=== PATIENT | male | born 1985 | race Caucasian/White ===

== ENCOUNTER 2017-05-18 21:22 | Inpatient (IN) | payer OTHER ==
--- NOTE | 2017-05-18 21:52 | CPEKG ---
Heart Rate: 52 RR Interval: 1154 P-R Interval: 180 QRSD Interval: 84 QT Interval: 392 QTC Interval: 365 P [place]: 13 QRS [place]: -18 T Wave [place]: 33 EKG Severity - BORDERLINE ECG - EKG Impression: SINUS RHYTHM Electronically Signed By: Jacques Pfeiffer 18-May-2017 22:38:12
--- NOTE | 2017-05-18 22:19 | EDPHY ---
H & P Stated Complaint: Palpations when playing basketball Time Seen by Provider: 05/18/17 22:19 HPI/ROS: CHIEF COMPLAINT: Palpitations, chest heaviness HISTORY OF PRESENT ILLNESS: The patient presents to the ED for evaluation of palpitations and chest heaviness that began today while he was playing basketball. The patient went home and rested however his symptoms persisted. He complained of fairly severe ongoing dyspnea. The patient denies prior history of the symptoms. He has no risk factors for coronary artery disease. He denies asymmetric calf pain or swelling. There is no family history of cardiac disease. The patient denies any drug alcohol or cigarette use. The patient currently is complaining of 4/10 pain. REVIEW OF SYSTEMS: A comprehensive 10 point review of systems is otherwise negative aside from elements mentioned in the history of present illness. Source: Patient - Personal History Current Tetanus/Diphtheria Vaccine: Yes Current Tetanus Diphtheria and Acellular Pertussis (TDAP): Yes - Medical/Surgical History Hx Asthma: No Hx Chronic Respiratory Disease: No Hx Diabetes: No Hx Cardiac Disease: No Hx Renal Disease: No Hx Cirrhosis: No Hx Alcoholism: No Hx HIV/AIDS: No Hx Splenectomy or Spleen Trauma: No Other PMH: denies - Social History Smoking Status: Never smoked - Physical Exam Exam: General Appearance: Alert, no distress Eyes: Pupils equal and round no pallor or injection ENT, Mouth: Mucous membranes moist Respiratory: There are no retractions, lungs are clear to auscultation Cardiovascular: Regular rate and rhythm Gastrointestinal: Abdomen is soft and nontender, no masses, bowel sounds normal Neurological: A&O, normal motor function, normal sensory exam, normal cranial nerves Skin: Warm and dry, no rashes Musculoskeletal: Neck is supple nontender Extremities: symmetrical, full range of motion Constitutional: Initial Vital Signs Temperature (C) 37.1 C 05/18/17 21:40 Heart Rate 70 05/18/17 21:40 Respiratory Rate 16 05/18/17 21:40 Blood Pressure 123/96 H 05/18/17 21:40 O2 Sat (%) 100 05/18/17 21:40 O2 Delivery Mode Nasal Cannula O2 (L/minute) 2 Allergies/Adverse Reactions: No Known Allergies Allergy (Unverified 05/18/17 21:43) Home Medications: Medication Instructions Recorded Herbals/Supplements -Info Only 1 ea PO DAILY 05/19/17 Ibuprofen [Motrin (*)] 200 mg PO DAILY PRN 05/19/17 Multivitamins [Multivitamin (*)] 1 each PO DAILY 05/19/17 [place]-3 Fatty Acids [Fish Oil 1000 1,000 mg PO DAILY 05/19/17 mg (*)] Tetrahydrozoline 0.05% [Visine (*)] 1 drop EACHEYE DAILY PRN 05/19/17 Medical Decision Making - Diagnostics EKG Interpretation: EKG: Complete interpretation has been separately recorded in the [facility] archive. Summary impression: Sinus rhythm, mild ST segment elevation noted in the precordial leads however there is a upsloping morphology to the ST segment. EKG #2: Complete interpretation has been separately recorded in the [facility] archive. Summary impression: Similar to 1st EKG without dynamic changes Imaging Results: Imaging Impressions Chest X-Ray 05/18/17 22:37 Impression: Central bronchitis.. Chest/Thorax CTA 05/18/17 23:38 Impression: 1. Negative CT examination of the chest for acute pulmonary thromboembolic disease. 2. Normal CT appearance of the thoracic aorta. 3. Lpdl-cm-ldvbmjmb mediastinal lymphadenopathy. Results called to Dr. Ernie Guzmán at the time of the interpretation. ED Course/Re-evaluation: The patient presents to the ED with exertional chest pain that began 7 o'clock this evening. Patient presents to the ED with some nonspecific changes on his EKG. He had no risk factors for cardiac disease. The patient had an IV established. He received IV morphine for initial control of his pain. The patient's initial troponin came back elevated at 0.1. His EKG was repeated and continues to demonstrate some nonspecific changes which are difficult to call a clear STEMI. I consulted with Dr. Marcos Krueger from Cardiology who evaluated the patient emergently in the emergency department. The patient was also taken for a stat CT angiogram of the chest which demonstrated no evidence of dissection. The patient did receive a total of 6 mg of morphine and 3 doses of nitroglycerin. He continues to have 3/10 pain. 12:00 a.m.: Patient's 2nd troponin is elevated at 0.6. Dr. Krueger will take the patient to the cardiac catheterization lab for further evaluation. Differential Diagnosis: Differential diagnosis considered includes acute coronary syndrome, pericarditis , myocarditis, aortic dissection, pulmonary embolism Critical Care Time: Critical care time exclusive of procedures and exclusive of the PA's time was 65 minutes, performed by myself, Jacques Pfeiffer MD. The patient presents to the ED with acute chest pain, EKG changes and abnormal cardiac enzymes. The patient required emergent consultation by Cardiology and will be taken to the cardiac catheterization lab for further evaluation of his symptoms, abnormal EKG and troponin abnormality. - Data Points Laboratory Results: Laboratory Results 05/18/17 22:08 05/18/17 22:08 05/18/17 05/18/17 05/18/17 23:30 23:30 22:08 D-Dimer 0.28 ug/mLFEU ug/mLFEU (0.00-0.50) Sodium Potassium Chloride Carbon Dioxide Anion Gap BUN Creatinine Estimated GFR Glucose Calcium Creatine Kinase 194 IU/L IU/L (0-224) CK-MB (CK-2) Fraction 7.35 ng/mL H ng/mL (0.00-3.19) CK-MB (CK-2) % 3.8 % % (0.0-4.0) Creatine Kinase Interp NEGATIVE (NEGATIVE) Troponin I 0.645 ng/mL H ng/mL (0.000-0.034) NT-Pro-B Natriuret Pep 162 pg/mL H pg/mL (0-125) 05/18/17 22:08 D-Dimer Sodium 140 mEq/L mEq/L (135-145) Potassium 3.7 mEq/L mEq/L (3.5-5.2) Chloride 105 mEq/L mEq/L (97-110) Carbon Dioxide 19 mEq/l L mEq/l (22-31) Anion Gap 16 mEq/L mEq/L (8-16) BUN 16 mg/dL mg/dL (7-23) Creatinine 1.4 mg/dL H mg/dL (0.7-1.3) Estimated GFR 59 Glucose 109 mg/dL H mg/dL (70-100) Calcium 10.4 mg/dL mg/dL (8.5-10.4) Creatine Kinase CK-MB (CK-2) Fraction CK-MB (CK-2) % Creatine Kinase Interp Troponin I 0.130 ng/mL H ng/mL (0.000-0.034) NT-Pro-B Natriuret Pep Medications Given: Aspirin Buffered (Aspirin Ec) 81 mg PO DAILY VANESSA Stop: 11/15/17 08:59 Last Admin: 05/19/17 08:29 Dose: 81 mg Atorvastatin Calcium (Lipitor) 40 mg PO DAILY [facility] Stop: 11/15/17 08:59 Last Admin: 05/19/17 08:29 Dose: 40 mg Carvedilol (Coreg) 3.125 mg PO BIDMEAL [facility] Stop: 11/15/17 04:14 Last Admin: 05/19/17 09:17 Dose: 3.125 mg Clopidogrel Bisulfate (Plavix) 75 mg PO DAILY [facility] Stop: 11/15/17 08:59 Last Admin: 05/19/17 08:29 Dose: 75 mg Discontinued Medications Aspirin (Aspirin) 324 mg PO EDNOW ONE Stop: 05/18/17 22:55 Last Admin: 05/18/17 23:02 Dose: 324 mg Morphine Sulfate (Morphine) 4 mg IVP EDNOW ONE Stop: 05/18/17 22:56 Last Admin: 05/18/17 23:05 Dose: 4 mg Morphine Sulfate (Morphine) 4 mg IVP EDNOW ONE Stop: 05/18/17 23:38 Last Admin: 05/18/17 23:39 Dose: 4 mg Nitroglycerin (Nitrostat) 0.4 mg SL Q5M PRN PRN Reason: Chest Pain Last Admin: 05/18/17 23:21 Dose: 0.4 mg Departure - Departure Disposition: [facility] Acute Clinical Impression: Chest pain, Acute coronary syndrome Condition: Fair
[2017-05-18 22:25] LABS: PLATELET COUNT 255 10^3/uL (150-400)
[2017-05-18] MEDS ORDERED: ASPIRIN 81 MG CHEWABLE TAB PO ONE (22:54)
[2017-05-18] MEDS: NITROGLYCERIN 0.4 MG BTL SL PRN ×3 (23:11→23:21)
[2017-05-18] MEDS ORDERED: IOPAMIDOL (ISOVUE 370) 100 ML BTL IV ONE (23:40)
[2017-05-18] MEDS ORDERED: fentaNYL 100 MCG/2 ML INJ ONE (23:52)
[2017-05-18] MEDS ORDERED: MIDAZOLAM 2 MG/2 ML VIAL ONE ×2 (23:52)
[2017-05-18] MEDS ORDERED: LIDOCAINE 1% 300 MG/30 ML SDV ONE (23:52)
[2017-05-18] MEDS ORDERED: IOPAMIDOL (ISOVUE-370) 150 ML BTL IV ONE (23:53)
[2017-05-18] MEDS ORDERED: BIVALIRUDIN 250 MG/5 ML VIAL IV ONE (23:57)
[2017-05-18] MEDS ORDERED: HEPARIN 10,000 UNIT/10 ML MDV (1,000 UNIT/ML) ONE (23:58)
--- NOTE | 2017-05-19 00:13 | CPEKG ---
Heart Rate: 61 RR Interval: 984 P-R Interval: 180 QRSD Interval: 80 QT Interval: 396 QTC Interval: 399 P [place]: -13 QRS [place]: 13 T Wave [place]: 22 EKG Severity - ABNORMAL ECG - EKG Impression: SINUS RHYTHM EKG Impression: CONSIDER ANTEROSEPTAL INFARCT Electronically Signed By: Jacques Pfeiffer 19-May-2017 00:13:07
[2017-05-19] MEDS ORDERED: MIDAZOLAM 2 MG/2 ML VIAL ONE ×2 (00:35→02:29)
[2017-05-19] MEDS ORDERED: fentaNYL 100 MCG/2 ML INJ ONE ×2 (00:35→02:29)
[2017-05-19] MEDS ORDERED: IOPAMIDOL (ISOVUE-370) 150 ML BTL IV ONE ×2 (02:01→02:17)
[2017-05-19] MEDS ORDERED: HEPARIN 10,000 UNIT/10 ML MDV (1,000 UNIT/ML) ONE ×2 (02:18→17:29)
[2017-05-19] MEDS ORDERED: NITROGLYCERIN 0.4 MG BTL SL PRN (02:49)
[2017-05-19] MEDS ORDERED: OXYCODONE/APAP 5/325 TAB PO PRN (02:49)
[2017-05-19] MEDS ORDERED: ONDANSETRON 4 MG/2 ML VIAL IVP PRN (02:49)
[2017-05-19] MEDS ORDERED: HYDROCODONE/APAP 5/325 TAB PO PRN (02:49)
[2017-05-19] MEDS ORDERED: ATROPINE SULFATE 1 MG/10 ML SYR IVP PRN (02:49)
[2017-05-19] MEDS ORDERED: CLOPIDOGREL BISULFATE 75 MG TAB ONE (02:58)
[2017-05-19] MEDS ORDERED: NS 1,000 ML IV SCH (03:30)
[2017-05-19 03:48] LABS: CREATINE KINASE 194 IU/L (0-224)
--- NOTE | 2017-05-19 03:52 | GHP ---
[f rep st] HISTORY AND PHYSICAL DATE OF ADMISSION: 05/19/2017 INDICATION FOR ADMISSION: Acute onset of chest pain with ST-segment elevation in the right precordia l leads and elevated troponin on admission. HISTORY OF PRESENT ILLNESS: The patient is a pleasant 31-year-old gentleman with no past medical his tory, who was playing basketball this evening at approximately 7:45 when he had an acute onset of sub sternal chest pain with bilateral paresthesias down both arms. He was able to sit down, felt slightl y better, but when he stood up, he had acute onset of chest discomfort again, prompting him to seek m edical attention at [facility]. He was brought to the hospital by his girlfriend. U eliseo his arrival, his initial ECG demonstrated Q-waves in V1 through V3 and between a half a millimete r and [address]-segment elevation in leads V2 and V3 with left axis deviation. Initial troponin 0.1 30. Repeat troponin an hour and 30 minutes later of 0.645. He was initially treated with nitroglyce rin, which alleviated his chest discomfort from a 7/10 down to 2/10. He did undergo CTA of the thora cic aorta with no evidence of aortic dissection. CT of the chest demonstrated no evidence of acute p ulmonary embolism and normal appearing CT of the thoracic aorta. There was mild to moderate mediasti nal lymphadenopathy. Initial chest x-ray was also unremarkable. Repeat ECG at 2255 demonstrated sinus rhythm at 61 beats per minute with persistent millimeter ST-segment elevation in V2, however, V3 and V4 had essentially normalized at this point. There was no evidence of T-wave inversions. The patient continued to have ongoing chest discomfort at the time of my examination, he was clearly uncomfortable. PAST MEDICAL HISTORY: None. MEDICATIONS: None. ALLERGIES: To medications none. SOCIAL HISTORY: He presents with his girlfriend. 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 He rarely drinks alcohol. No illicit drug use. No marijuana. No cocaine. No heroin. FAMILY HISTORY: No family history of coronary artery disease. PHYSICAL EXAMINATION: VITAL SIGNS: Blood pressure 129/89, heart rate of 83 in sinus rhythm, respira tory rate of 20, oxygen saturation 100% on 2 L nasal cannula. GENERAL: He is awake, alert, oriented , appropriate. No apparent distress. No evidence of JVP or carotid bruits. LUNGS: Clear to auscul tation bilaterally. CARDIAC: S1, S2. No murmurs, rubs, or gallops. ABDOMEN: Soft, nontender, non distended. There is no evidence of cyanosis, clubbing or edema. DATA: White blood cell count 16.7, hemoglobin 17, hematocrit 47, platelet count 255. D-dimer was ne gative at 0.28. Sodium 140, potassium 3.7, creatinine of 1.4, glucose of 109. Troponin initially of 0.16, now repeat is elevated at 0.645. IMPRESSION: 1. Ongoing substernal chest pain. 2. Findings suggestive of ST-segment elevation myocardial infarction right precordial leads. 3. Negative CTA for pulmonary embolism or thoracic aortic dissection. I have reviewed the risks and benefits of diagnostic left heart catheterization in this patient in th e setting of ongoing chest pain, elevated enzymes, and abnormal ECG. He is agreeable to pursue. PLAN: 1. Diagnostic left heart catheterization. 2. Further studies to follow. /[id number]/MODL
[2017-05-19] MEDS: CARVEDILOL 3.125 MG TAB PO SCH ×2 (04:14→09:17)
[2017-05-19 04:51] LABS: CREATINE KINASE 499 IU/L (0-224)
--- NOTE | 2017-05-19 05:07 | CPIP ---
[f rep st] INVASIVE CARDIAC PROCEDURE PROCEDURE: Left heart catheterization, coronary angiography, attempted percutaneous coronary interve ntion. INDICATIONS: A 31-year-old male admitted with acute chest pain syndrome, taken to the cardiac cath l ab by my partner, Dr. Marcos Krueger. Diagnostic angiograms showed a significant anterior lateral akinet ic segment. Diagnostic angiograms did not reveal a stump occlusion easily visible. After reviewing diagnostic angiograms, it was elected to re-engage with an interventional JL4 guiding catheter with a 0.014 Luge wire. DESCRIPTION OF PROCEDURE: Multiple shots were obtained in multiple angles showing collateralization to what appears to be the apical portion of either a diagonal or the apical portion of the LAD. Prob es with the wire in the proximal segment did not reveal an occlusion amenable to PCI. I reviewed the diagnostic CT scans which suggested a vessel above what we could visualize. Again, multiple attempt s at probing were made, but despite multiple what felt like possible stump occlusions. The wire posi tion was not confirmed. The patient was administered heparin for the intervention. Therapeutic ACT was confirmed during the procedure. His pain was a 1/10 with stable hemodynamics. After multiple at tempts, it was elected to stop at this time as the patient has excellent collaterals and stable hemod ynamics with continued aggressive medical therapy. Will review films in the psychiatric nurse with CT Beltran rgery to see if there is a potential distal LAD target. Will plan for echocardiogram to look at LV r ecovery in the morning. Will follow cardiac enzymes per Dr. Krueger. At the time of this dictation, th e patient is hemodynamically stable with minimal discomfort, stable electrical status and will be cat en to the ICU for continued care. FINAL DIAGNOSIS: Anterolateral myocardial infarction with collaterals to what appears to be a sunshine al. No obvious lesion identified. /[id number]/MODL
[2017-05-19] MEDS ORDERED: HEPARIN/DEXTROSE 25,000 UNIT/500 ML BAG ONE (08:28)
[2017-05-19] MEDS: CLOPIDOGREL BISULFATE 75 MG TAB PO SCH (08:29)
[2017-05-19] MEDS: ASPIRIN EC 81 MG TAB PO SCH (08:29)
[2017-05-19] MEDS: ATORVASTATIN CALCIUM 40 MG TAB PO SCH (08:29)
--- NOTE | 2017-05-19 08:36 | CPEKG ---
Heart Rate: 57 RR Interval: 1053 P-R Interval: 164 QRSD Interval: 86 QT Interval: 428 QTC Interval: 417 P [place]: -7 QRS [place]: 17 T Wave [place]: 56 EKG Severity - ABNORMAL ECG - EKG Impression: SINUS RHYTHM EKG Impression: ABERRANT COMPLEX EKG Impression: ANTERIOR INFARCT, AGE INDETERMINATE Electronically Signed By: Uriel Doshi 19-May-2017 08:41:44
[2017-05-19] MEDS ORDERED: HEPARIN 10,000 UNIT/10 ML MDV (1,000 UNIT/ML) IVP ONE (08:38)
[2017-05-19] MEDS ORDERED: HEPARIN 10,000 UNIT/10 ML MDV (1,000 UNIT/ML) IVP PRN (08:38)
[2017-05-19] MEDS ORDERED: HEPARIN/DEXTROSE 500 ML IV SCH (08:45)
[2017-05-19] MEDS ORDERED: LIDOCAINE/DEXTROSE 500 ML IV SCH (09:00)
--- NOTE | 2017-05-19 09:26 | ASMTCMCOM ---
CM Note CM Note Notes: 31 yr old male admitted for CP, no other medical isssues. Had a heart cath. Support from girlfriend. CM doesn't anticipate patient will have any discharge needs. Date Signed: 05/19/2017 09:26 AM Electronically Signed By:Maribel Gonzalez LCSW
--- NOTE | 2017-05-19 09:33 | CPIP ---
[f rep st] INVASIVE CARDIAC PROCEDURE DATE OF PROCEDURE: 05/19/2017 PROCEDURE PERFORMED: Diagnostic left heart catheterization. INDICATION FOR LEFT HEART CATHETERIZATION: Acute myocardial infarction with ongoing chest pain and e levated troponin. PROCEDURE PERFORMED: 1. Left heart catheterization. 2. Left coronary angiography. 3. Right coronary angiography. 4. Left ventriculogram. 5. Right common femoral artery angiography. DESCRIPTION OF PROCEDURE: After informed consent was obtained, the patient was brought to the [facility] catheterization lab where he was prepped and draped in a sterile fashion. Using 1% lidocaine the r ight groin was anesthetized. Using the micropuncture modified Seldinger technique, a 6-Zimbabwean cathet er was placed into the right common femoral artery without complications. A JL4 catheter was used to take images of the left coronary anatomy in multiple projections. The JL4 catheter was exchanged ov er a guidewire for a JR4 catheter. JR4 catheter was used to take images of the right coronary anatom y. A JR4 catheter was exchanged over a guidewire for an angled pigtail catheter. Angled pigtail cat heter was used to cross the aortic valve. Left ventriculogram was performed. LVEDP was assessed, an d aortic valve gradient was assessed. Angled pigtail catheter was removed over a guidewire without c omplications. Right common femoral artery angiography was obtained demonstrating appropriate placeme nt of the 6-[place]an catheter below the inguinal ligament and above the bifurcation of the common femor al artery. FINDINGS: 1. Left main normal size and caliber bifurcates into left anterior descending and left circumflex co ronary artery. There is some distal tapering of approximately 10% to 20% of the distal left main. 2. Left anterior descending artery gives rise to several small septal perforators. There is no evid ence of coronary disease within the left anterior descending. There is a moderate size first diagona l branch that is free of coronary artery disease. There is evidence of xxkoz-ew-nmbt retrograde fill ing via collaterals to a branch vessel off the LAD. This appears to be a diagonal branch. 3. Circumflex artery is a small nondominant vessel. There is a moderate size first diagonal branch. There is no evidence of coronary disease within the circumflex artery. 4. The right coronary artery is a large caliber dominant vessel with a PDA and PLV branch. There is no evidence of coronary disease within the right coronary artery. 5. Hemodynamics: LVEF 40% with anterior wall hypokinesis. LVEDP is elevated approximately 32 mmHg. Aortic valve gradient none. 6. Right common femoral artery angiography demonstrates appropriate placement of 6-[place]imbabwean sheath. CONCLUSIONS: 1. Occluded diagonal branch with collateral filling via the right coronary artery. 2. Anterior wall hypokinesis with LVEF of 40%. 3. 10% to 20% distal left main stenosis. The remainder of the coronary anatomy is unremarkable. ADDENDUM: I reviewed the images with my interventional partner, Dr. Diogo Nova. Attempts were made with Dr. Nova to cannulate the origin of the occluded diagonal branch. Attempts were unsucc essful. Please see his note for full details. PLAN: The patient will be transported to ICU to be started on medical therapy. /[id number]/MODL
[2017-05-19 09:40] LABS: PLATELET COUNT 195 10^3/uL (150-400)
[2017-05-19 09:48] LABS: CREATINE KINASE 1292 IU/L (0-224)
[2017-05-19] MEDS ORDERED: ENALAPRIL MALEATE 2.5 MG TAB PO PRN (11:09)
[2017-05-19] MEDS ORDERED: CARVEDILOL 3.125 MG TAB PO ONE (11:15)
--- NOTE | 2017-05-19 11:32 | ECHO ---
[email or web address] [address] [address] Main: [phone] Fax: Transthoracic Echocardiogram Name: LEEANNA GLASS MR#: [id number] Study Date: 05/19/2017 Study Time: 07:41 AM Date of : 1985 Age: 31 year(s) Height: 188 cm (74 in.) Weight: 81.65 kg (180 lb.) BSA: 2.08 m2 Gender: Male Examination: Limited Echo Indication: Post OK Image Quality: Contrast: Requested by: Prince Krueger BP: 132 mmHg/87 mmHg Heart Rate: Rhythm: Normal sinus rhythm with ectopy Indication: Post OK Procedure Staff Optical Sales Associate: Luc Angeles RDCS Reading Physician: Diogo Nova MD Requesting Provider: Conclusions: No pericardial effusion. Anterior apical akinesis consistent with myocardial infarction. Ejection fraction 34%. No significant valvular abnormalities by Doppler or 2D study. Measurements: Chambers Valvular Assessment AV/MV Valvular Assessment TV/PV Normal Normal Normal Name Value Range Name Value Range Name Value Range Ao Xochitl (MM): 3.3 cm (2.2 cm-3.7 AV Vmax: 1.18 m/s (1 m/s-1.7 TR Vmax: 2.32 mm/s ( - ) cm) m/s) TR PGmax: 22 mmHg ( - ) IVSd (2D): 1.0 cm (0.6 cm-1.1 AV maxP mmHg ( - ) syst. PAP: 27 mmHg ( - ) cm) LVOT Vmax: 0.67 m/s (0.7 m/s-1.1 PV Vmax: 0.79 m/s (0.6 m/s-0.9 LVDd (2D): 5.0 cm (4.2 cm-5.9 m/s) m/s) cm) MV E Vmax: 0.73 m/s ( - ) PV PGmax: 2 mmHg ( - ) LVDs (2D): 3.8 cm (2.1 cm-4 MV A Vmax: 0.35 m/s ( - ) cm) MV E/A: 2.09 ( - ) LVPWd (2D): 1.0 cm (0.6 cm-1 cm) LVEF (BP): 34 % (>=55 %) Continued Measurements: Chambers Valvular Assessment AV/MV Valvular Assessment TV/PV Name Value Name Value Name Value LADs Lon.6 cm MV E' Septal: 0.10 m/s CVP (est.): 5 mmHg LA Area: 19.8 cm2 MV E/E' Septal: 7.00 LA Volume: 64 ml MV E/E' Lateral: 6.30 LA Volume Index: 30.8 ml/m2 Patient: LEEANNA GLASS Study Date: 05/19/2017 Page 1 of 2 07:41 AM Findings: Left Ventricle: Normal size left ventricle. Moderately reduced systolic LV function. EF is 34 %. There is mid anteroseptal to apical hypokinesis. There is mid inferoseptal to apical septal hypokinesis. The EF is estimated at 35% Ectopy is noted during the exam.. Right Ventricle: Normal size right ventricle. Normal RV function. Left Atrium: The left atrium is normal in size. Right Atrium: The right atrium is normal in size. Mitral Valve: The mitral valve is normal in appearance and function. Aortic Valve: The aortic valve is tri-leaflet and functions normally. Tricuspid Valve: The tricuspid valve is normal in appearance and function. Pulmonic Valve: The pulmonic valve is normal in appearance and function. Aorta: The aorta is normal. Pericardium: No pericardial effusion. (No Signature Object) Patient: LEEANNA GLASS Study Date: 05/19/2017 Page 2 of 2 07:41 AM [id number]
--- NOTE | 2017-05-19 12:24 | GCON ---
[f rep st] CONSULTATION CARDIOVASCULAR CONSULTATION. HISTORY OF PRESENT ILLNESS: The patient is admitted to the hospital in anterior myocardial infarction. I have just talked with him this morning. He is not having chest pain. He is not short of breath. He feels quite well. He is a gentleman who came in with the onset of chest pain last night and came to the hospital with an acute myocardial infarction. Coronary angiography was performed. He had no past medical history and he was playing basketball. He came to [facility] and his pain slowly improved. His pain went from 8/ 10 to 2/10 with nitroglycerin, and the patient was brought to the [facility]. MEDICATIONS: He takes no medications. PAST MEDICAL HISTORY: He has no history of premature coronary disease in his family, hypertension, hyperlipidemia, diabetes mellitus, prior known coronary disease, cocaine use, atrial arrhythmias, hyperlipidemia, hyperuricemia, obesity , smoking. REVIEW OF SYSTEMS: 10-point review of systems negative, except as noted above. SOCIAL HISTORY: He is an active young man. His girlfriend is with him when I am meeting him. 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 Does not use any drugs at all. He occasionally will drink alcohol. FAMILY HISTORY: Negative for premature coronary artery disease. PHYSICAL EXAMINATION: VITAL SIGNS: Blood pressure is 125/75, heart rate is 77 , respiratory rate is 12. GENERAL: When I first him he was sitting comfortably in the hospital bed, and now, he is he is sleeping in the hospital bed. PULMONARY: Reveals rhonchi. No rales, wheezing, or dullness. : S1, S2. Very soft systolic murmur left sternal border. No diastolic murmur. No S3 , S4. No rubs. ABDOMEN: Unremarkable. EXTREMITIES: Without edema. NEUROLOGIC: He is alert and oriented when I talked to him and having no pain. LABORATORY/IMAGING: Chest x-ray was negative. CT scan of the thorax for pulmonary embolic disease or aortic dissection or other aortic pathology was all negative. His EKG shows an anterior infarction. ASSESSMENT/PLAN: 1. Acute myocardial infarction. 2. Ischemic cardiomyopathy. His ejection fraction is 35% with significant wall motion abnormality. It was felt at angiography that the patient has an occluded diagonal branch of the left anterior descending. His troponins are elevated. He is going to be treated very aggressively medically for an acute myocardial infarction. His films have been reviewed by the interventional service and myself, and everyone agrees, there is nothing to do to intervene on the patient or any role for surgery in his care. I have talked to patient and answered his questions. Discussed this case with the ICU team. For now, we have him on clopidogrel, aspirin, statins, beta blockers, and we will start CRISTINA inhibitors tonight when he goes to bed if his blood pressure can tolerate it. We are increasing his beta-tirso dose now to Coreg 6.25 twice a day. I am hopeful that he can improve remarkably and perhaps even get all better. /[id number]/MODL MTDD
--- NOTE | 2017-05-19 14:23 | GCON ---
[f rep st] CONSULTATION PULMONARY/CRITICAL CARE CONSULTATION DATE OF CONSULTATION: 05/19/2017 REFERRING PHYSICIAN: Esteban Hunt REASON FOR REFERRAL: Evaluation and management of chest pain and hypocalcemia. HISTORY: The patient is a 31-year-old male who was in his usual state of good health. He was playing basketball yesterday evening when he had acute onset of substernal chest pain and paresthesias down his arms. Because this persisted, he was brought to the emergency department where he was found to reddy ve Q-waves in V1 through V3 and ST-segment elevation in leads V2 and V3. He was treated with nitroglycerin, which helped but did not relieve his pain. He had a CT scan of the chest that excluded aortic dissection. He was then taken to the catheterization lab where he was fou nd to have reduced ejection fraction at 40% and an elevated LVEDP of 32 mmHg. He had an occluded diag onal branch with collateral filling via the right coronary artery. Interventions were attempted but w ere unsuccessful. He has returned to the intensive care unit. He has had frequent ectopy with junctio nal rhythm, accelerated junctional, PVCs, brief runs of SVT, and brief runs of an NSVT. The patient h as been hemodynamic throughout all these and was asymptomatic with them. He currently reports that he has some mild chest discomfort, rated 0-1 out of 10. He denies shortness of breath or diaphoresis. PAST MEDICAL HISTORY: None. MEDICATIONS: None. SOCIAL HISTORY: The patient lives with his girlfriend. He rarely drinks alcohol and does not smoke o r use cocaine. FAMILY HISTORY: Unremarkable. REVIEW OF SYSTEMS: A 10-point review of systems adds nothing to the History of Present Illness. PHYSICAL EXAMINATION: GENERAL: The patient is sleepy, but awakens to voice and is fully oriented. GABRIELLE SIGNS: His blood pressure is 119/75 with a heart rate of 82. He is afebrile. Oxygen saturations a re 98% on 2 L. HEENT: Normocephalic and atraumatic. No icterus. NECK: No JVD. Trachea is midline. RAINA ST: Clear to auscultation. CARDIAC: Regular rate and rhythm without murmur. ABDOMEN: Soft, nontender. Bowel sounds are present. EXTREMITIES: No clubbing or cyanosis. He has no edema. NEURO: The patient is arousable and alert. He has no gross motor or sensory weakness. LABORATORY: Chemistry group is remarkable for a calcium of 8.3, down from 10.4. Troponin is 12.2, up from 0.13 initially. BNP is 162. A CT scan of the chest shows no pulmonary abnormalities. Images reviewed by me. ASSESSMENT: 1. ST-segment elevation acute myocardial infarction. The patient apparently has an occluded diagonal branch. He has significant regional wall motion abnormalities, but no clinical signs of significant congestive heart failure. His chest pain is fairly well controlled. He has had some arrhythmias, but these are improved with Coreg. He is also on lisinopril as well as aspirin. No further coronary inter vention is warranted or likely to be successful per Cardiology. 2. Chest pain. This is now down to 0-1 out of 10 with Coreg and afterload reduction. 3. Hypocalcemia. This is mild. The patient's initial calcium level is normal. RECOMMENDATIONS: 1. Continue beta blockers, lisinopril, and aspirin, as well as oxygen. Continue to monitor in the U. 2. Repeat calcium tomorrow. /[id number]/MODL
--- NOTE | 2017-05-19 15:56 | PDINTPN ---
Program Mgr Progress Note Assessment/Plan: Assessment: S/P STEMI: Ventricular and supraventricular ectopy this AM, now improved, started Coreg. Possible DAIANA: Witnessed apneas by nurse this AM. Could be due to residual effects of sedation from heart cath. Plan: Continue current medications. Diet as tolerated. Will check urine tox screen. Consider outpatient evaluation for DAIANA after discharge. Numerous questions by patient and family answered by Dr. Nova and me. 05/19/17 15:54 Subjective: Patient denies pain. No dyspnea. Objective: Vital Signs Temp Pulse Resp BP Pulse Ox 36.9 C 82 19 119/75 98 05/19/17 12:00 05/19/17 12:00 05/19/17 12:00 05/19/17 12:00 05/19/17 12:00 Laboratory Results 05/19/17 09:29 05/19/17 03:46 05/18/17 05/19/17 05/20/17 05:59 05:59 05:59 Intake Total 1250 Output Total 900 Balance 350 Laboratory Tests 05/19/17 09:29 Creatine Kinase 1292 H Troponin I 12.200 H Physical Exam - Physical Exam General Appearance: alert, no apparent distress EENT: normal ENT inspection Neck: normal inspection Respiratory: lungs clear, normal breath sounds Cardiac/Chest: normal peripheral pulses, regular rate, rhythm Abdomen: normal bowel sounds, non-tender Skin: warm/dry Extremities: normal inspection Neuro/Psych: alert, normal mood/affect, oriented x 3 ICD10 Worksheet Patient Problems: Problems Problem Status Onset Acute coronary syndrome Acute Chest pain Acute
[2017-05-19] MEDS: CARVEDILOL 6.25 MG TAB PO SCH (18:31)
[2017-05-19 21:21] LABS: CREATINE KINASE 2455 IU/L (0-224)
[2017-05-20 05:49] LABS: CREATINE KINASE 1529 IU/L (0-224)
--- NOTE | 2017-05-20 08:44 | CPEKG ---
Heart Rate: 60 RR Interval: 1000 P-R Interval: 176 QRSD Interval: 84 QT Interval: 472 QTC Interval: 472 P White: -2 QRS White: 74 T Wave White: 98 EKG Severity - ABNORMAL ECG - EKG Impression: SINUS ARRHYTHMIA, RATE 47-67 EKG Impression: ANTERIOR INFARCT, AGE INDETERMINATE EKG Impression: BORDERLINE PROLONGED QT INTERVAL Electronically Signed By: Uriel Doshi 20-May-2017 09:08:36
[2017-05-20] MEDS: CARVEDILOL 6.25 MG TAB PO SCH ×2 (09:03→18:18)
[2017-05-20] MEDS: ATORVASTATIN CALCIUM 40 MG TAB PO SCH (09:04)
[2017-05-20] MEDS: ASPIRIN EC 81 MG TAB PO SCH (09:04)
[2017-05-20] MEDS: CLOPIDOGREL BISULFATE 75 MG TAB PO SCH (09:04)
--- NOTE | 2017-05-20 15:58 | ASMTCMCOM ---
CM Note CM Note Notes: Met with patient's mom and girlfriend to discuss insurance issues. Apparently, patient had recently enrolled with [employer] (was covered as of 03/23/17) but then cancelled his enrollment when he started to receive requests for payments in the mail. Family brought in multiple letters from [employer], and I had to encourage them to contact [employer] directly to get the issue resolved. I was able to reassure them, however, that this hospitalization would be covered, since patient's coverage was good through today, 05/20. I also informed them that coverage would continue until discharge but that after that, patient would need to seek coverage. I had someone from [employer] come to screen him for Medicaid. There was also a lot of back and forth today about whether patient would need repatriation to [facility]. Dr Nova said he was waiting on a call from a [employer] MD to discuss this. I spoke with Yury Pat CM ([phone]) who requested that her doctor call Dr Nova. Apparently, if patient does not need a CABG (which, according to Dr Palm, he does not), there is no need to transfer. I will leave this to the cardiology team. Date Signed: 05/20/2017 03:58 PM Electronically Signed By:Astrid Flores RN
--- NOTE | 2017-05-20 16:39 | PDINTPN ---
Industrial Manufacturing Technician Progress Note Assessment/Plan: Assessment: S/P STEMI: Clinically improved. No CP, significant ectopy. Urine tox screen negative except for THC. Possible DAIANA: Witnessed apneas by nurse this AM. Could be due to residual effects of sedation from heart cath. SALVADOR: Likely due to reduced EF and IV contrast. Normalized. Plan: Continue current medications, adjust per cardiology. Nuc Stress test and CT Heart tomorrow. Transfer to PCU. Consider outpatient evaluation for DAIANA after discharge. Questions by patient and family answered by Dr. Nova and me. 05/20/17 16:40 Subjective: Feels well, denies CP, dyspnea. Objective: Vital Signs Temp Pulse Resp BP Pulse Ox 36.8 C 72 16 108/63 100 05/20/17 08:00 05/20/17 14:00 05/20/17 14:00 05/20/17 14:00 05/20/17 14:00 Laboratory Results 05/20/17 03:55 05/20/17 03:55 05/19/17 05/20/17 05/21/17 05:59 05:59 05:59 Intake Total 1250 1872 500 Output Total 900 1150 1100 Balance 350 722 -600 Laboratory Tests 05/19/17 05/20/17 17:25 03:55 Troponin I 35.000 H U Marijuana (THC) Screen 76 Physical Exam - Physical Exam General Appearance: alert, no apparent distress EENT: normal ENT inspection Neck: normal inspection Respiratory: lungs clear, normal breath sounds Cardiac/Chest: regular rate, rhythm, No edema Abdomen: normal bowel sounds, non-tender Skin: normal color, warm/dry Extremities: non-tender ICD10 Worksheet Patient Problems: Problems Problem Status Onset Acute coronary syndrome Acute Chest pain Acute
--- NOTE | 2017-05-20 17:03 | SOAPPROG ---
MARIO Progress Note Assessment/Plan: Assessment: Non-Q-wave myocardial infarction. Ischemic cardiomyopathy. Impression: Day 2. Status post NE. Clinically stable without angina or heart failure. Plan for risk stratification tomorrow. Discussed by interventional Cardiology at [place] and here at [facility]. Ischemic burden to be determined. Will transfer to telemetry. Phase 1 cardiac rehabilitation. 05/20/17 17:02 Subjective: Feeling well. No further chest pain. No shortness of breath. Objective: Vital Signs Temp Pulse Resp BP Pulse Ox 36.8 C 72 16 108/63 100 05/20/17 08:00 05/20/17 14:00 05/20/17 14:00 05/20/17 14:00 05/20/17 14:00 Laboratory Results 05/20/17 03:55 05/20/17 03:55 05/19/17 05/20/17 05/21/17 05:59 05:59 05:59 Intake Total 1250 1872 500 Output Total 900 1150 1100 Balance 350 722 -600 EKG shows evolving anterior wall myocardial infarction with Q-waves. Physical Exam - Physical Exam General Appearance: no apparent distress EENT: normal ENT inspection Neck: non-tender, full range of motion Respiratory: chest non-tender, lungs clear, normal breath sounds Cardiac/Chest: normal peripheral pulses, regular rate, rhythm, No edema, No gallop, No JVD Peripheral Pulses: 1+: carotid (R), carotid (L) ICD10 Worksheet Patient Problems: Problems Problem Status Onset Chest pain Acute Acute coronary syndrome Acute
[2017-05-21] MEDS: ASPIRIN EC 81 MG TAB PO SCH (08:52)
[2017-05-21] MEDS: CLOPIDOGREL BISULFATE 75 MG TAB PO SCH (08:52)
[2017-05-21] MEDS: ATORVASTATIN CALCIUM 40 MG TAB PO SCH (08:52)
[2017-05-21] MEDS: CARVEDILOL 6.25 MG TAB PO SCH (08:52)
[2017-05-21] MEDS ORDERED: IOPAMIDOL (ISOVUE 370) 100 ML BTL IV ONE (09:00)
[2017-05-21] MEDS ORDERED: METOPROLOL TARTRATE 5 MG/5 ML INJ ONE (09:55)
[2017-05-21] MEDS ORDERED: REGADENOSON 0.4 MG/5 ML SYR IVP ONE (10:29)
[2017-05-21 11:50] VITALS: TEMP 98.5
--- NOTE | 2017-05-21 13:34 | PDDCSUM ---
Discharge Summary Discharge Summary: Admission date: 05/18/2017 Discharge date: 05/21/2017 Admission diagnosis: Anterior wall myocardial infarction Discharge diagnosis: Anterior wall myocardial infarction. Ischemic cardiomyopathy ejection fraction 35%. Discharge medications please see the attached discharge reconciliation sheet. Follow-up cardiology [facility] day discussed with Dr. Myrtle Sheikh within 1 week to 10 days. Procedures: Left heart catheterization attempted PCI of the LAD. CT scan of the chest rule out aortic dissection. Gated contrast CT of the coronary arteries revealing 2.5 cm chronic occlusion of the LAD flush with the left main with reconstitution of the a 3 mm vessel in the intraventricular groove on the surface of the heart. Lexiscan stress test revealing anteroseptal large defect with reversibility. Echocardiogram showing ejection fraction 35%. Preserved myocardial thickness in the region of the infarction. No significant valvular abnormalities. No pericardial effusion. Hospital course: Mr. Tang is a 31-year-old male admitted to the hospital with acute onset chest pain while playing basketball. His initial EKG showed a anterior Q-waves. He has standard workup for chest pain with a CT scan revealing no evidence of aortic dissection or pulmonary embolic disease. His troponin became slightly elevated he was taken the cardiac catheterization lab by my partner Dr. Marcos Krueger. Angiography at that time revealed a large anterior apical akinetic segment. Coronary anatomy was not well defined. I reviewed his diagnostic angiograms that night remotely and then in person with a suggestion of loss of the LAD with collaterals. Attempted PCI was made in regions that appear to be potentially the culprit. After several hours the patient became pain-free and we were unable to revascularize him percutaneously. He was taken to the intensive care unit in a pain-free status. He was observed with 1 day of ventricular ectopy which quieted down with beta- blockade. He was started on standard medical therapy including Cornell inhibition, beta-blockade, statin therapy, dual antiplatelet therapy. After 48 hours of heparin a Lexiscan was performed revealing a large anterior septal defect with reversibility. A CT angiogram was performed revealing a 2.5 cm chronic occlusion of the LAD flush with the left main. There was reconstitution of the vessel distally. The vessel measures 3 mm. He was hemodynamically stable. On the day of discharge blood pressure was 106/70. His heart rate was 62. Chest was clear. Cardiac exam showed a regular rate and rhythm with an S4. His abdomen is soft. Is puncture site was healing well without erythema or edema. At this point patient presents with a ischemic cardiomyopathy ejection fraction of 35% with an area of anterior septal reversibility in the setting of a recent myocardial infarction. Initial EKG suggest significant chronicity. CT angiogram does show a chronic occlusion with reconstitution of the distal vessel. On good medical therapy he is currently asymptomatic without angina or heart failure. Will need to consider revascularization strategies including bypass surgery with mammary to the LAD versus repeat attempted PCI of a chronic occlusion versus continued medical therapy alone. Discussed this options with the patient and family. He will be discharged home followed up at [facility] for ongoing evaluation and treatment. A PET scan may be helpful to determine true viability. This was discussed with the [facility] doctors. Patient will be followed up as outlined above. We are happy to see him here in [place] if needed.
[2017-05-21 14:23] VITALS: BP 109/61; PULSE 66; RESP 21; O2SAT 99
--- NOTE | 2017-05-21 14:44 | CPR ---
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 PROCEDURE IN DETAIL: After obtaining informed consent, ensuring patient's n.p.o. status of caffeine greater than 12 hours, patient was placed on electrocardiogram. Initial EKG showing sinus rhythm, no rmal axis, biphasic T-waves noted in V2 through V4. The patient denies any chest pain, shortness of breath, or symptoms suggesting of ischemia. Initial blood pressure of 102/68, saturation 96%. Injection: Patient was given Lexiscan slow IV push followed by nuclear isotope. Within 1 minute of injection, patient's heart rate did increase to 91 beats per minute, reporting some mild left anterio r chest pressure, and flushing sensation. By 3 minutes, patient reports symptoms somewhat subsided, he was given caffeinated beverage at this time. His electrocardiogram remained unchanged. His blood pressure was 98/62, saturation 97% on room air. Within 5 minutes, patient reported all symptoms subs ided, again no significant EKG changes. Final blood pressure was 100/64, saturation 98%. IMPRESSION: A 31-year-old male with recent myocardial infarction, undergoing MPI study for evaluatio n of further cardiac ischemia, reporting mild chest pressure and flushing sensation post injection wh ich resolved with time and caffeine beverage. Vital signs remained stable. Currently, he is asympto matic. He will finish poststress imaging in nuclear medicine. /[id number]/MODL
== END 2017-05-21 15:56 | disposition home or self-care (01) | DRG 282 ==
LOC: F2N 05-19 03:19 → F2W 05-21 06:11
PROVIDERS: ADMIT Internal Medicine Cardiovascular Disease; ATTEND Internal Medicine Cardiovascular Disease
PROC: B2151ZZ Fluoroscopy of Left Heart using Low Osmolar Contrast (ICD-10-PCS; principal; 2017-05-19)
PROC: 4A023N7 Measurement of Cardiac Sampling and Pressure, Left Heart, Percutaneous Approach (ICD-10-PCS; principal; 2017-05-19)
PROC: B2111ZZ Fluoroscopy of Multiple Coronary Arteries using Low Osmolar Contrast (ICD-10-PCS; principal; 2017-05-19)
PROC: B2111ZZ Fluoroscopy of Multiple Coronary Arteries using Low Osmolar Contrast (ICD-10-PCS; 2017-05-19)
PROC: 4A023N7 Measurement of Cardiac Sampling and Pressure, Left Heart, Percutaneous Approach (ICD-10-PCS; 2017-05-19)
DX: I21.09 ST elevation (STEMI) myocardial infarction involving other coronary artery of anterior wall (principal); I25.5 Ischemic cardiomyopathy; G47.33 Obstructive sleep apnea (adult) (pediatric)
CPT/HCPCS: 80307; 85520-90; 96374; A9500; C1760; C1769; C1887; G0480; J0461; J0583; J1200; J1644; J2001; J2250; J2270; J2405; J2785; J3010; Q9967

== ENCOUNTER 2017-06-08 08:12 | Inpatient (IN) | payer MEDICAID, OTHER ==
[~2017-06-08 08:12] MED LIST: ADENOSINE 6 MG/2 ML VIAL ONE; ALBUMIN 5% 250 ML BOTTLE IV ONE; AMINOCAPROIC ACID 5 GM/20 ML VIAL IV ONE; AMIODARONE HCL 150 MG/3 ML VIAL ONE; CALCIUM CHLORIDE 1 GM/10 ML INJ ONE; CITRATE DEXTROSE SOLN 500 ML BAG ONE; DOPamine/DEXTROSE/250 ML BAG IV ONE; EPINEPHrine 8 MG in NS 250 ML IV ONE; HEPARIN 10,000 UNIT/10 ML MDV (1,000 UNIT/ML) ONE; INSULIN REGULAR HUMAN 100 UNIT in NS 100 ML IV ONE; LIDOCAINE 2% 100 MG/5 ML SYR ONE; MAGNESIUM SULFATE 1 GM/2 ML VIAL ONE; MANNITOL 25% 12.5 GM/50 ML VIAL IVP ONE; MILRINONE/DEXTROSE/100 ML BAG IV ONE; NA BICARBONATE 50 MEQ/50 ML VIAL ONE; NOREPINEPHRINE BITARTRATE 16 MG in NS 250 ML IV ONE; PHENYLEPHRINE HCL 50 MG in NS 250 ML IV ONE; PROTAMINE SULFATE 50 MG/5 ML VIAL IVP ONE; SODIUM BICARBONATE 20 MEQ, LIDOCAINE 1% 10 ML in NORMOSOL-R 1,000 ML MISC ONE; VERAPAMIL 5 MG, NITROGLYCERIN 2.5 MG, HEPARIN 500 UNIT, SODIUM BICARBONATE 0.2 MEQ in L... MISC ONE; ceFAZolin 1 GM VIAL ONE; methylPREDNISolone SOD SUCC 1 GM/8 ML VIAL ONE; niCARdipine/NACL/200 ML BAG IV ONE
[2017-06-08] MEDS ORDERED: ceFAZolin 2 GM/SWFI 2 GM/20 ML SYR IVP ONE ×2 (08:50→09:00)
[2017-06-08] MEDS ORDERED: niCARdipine/NACL 200 ML IV SCH (08:50)
[2017-06-08] MEDS ORDERED: MUPIROCIN 2% 22 GM OINT NS ONE (08:50)
[2017-06-08] MEDS ORDERED: CITRATE DEXTROSE SOLN 500 ML BAG MISC ONE (08:50)
[2017-06-08] MEDS ORDERED: LR 1,000 ML IV ONE (08:51)
[2017-06-08] MEDS ORDERED: LIDOCAINE 1% 2 ML INJ ID PRN (08:51)
--- NOTE | 2017-06-08 08:54 | PDHPUP ---
History & Physical Update H&P update statement: This history and physical update is based on an assessment of the patient which was completed after admission or registration (within 24 hours), but prior to the surgery/procedure. H&P update: H&P reviewed & patient examined, no change in patient's condition since H&P completed
[2017-06-08] MEDS ORDERED: MINERAL OIL 10 ML VIAL ONE (09:40)
[2017-06-08] MEDS ORDERED: VERAPAMIL 5 MG/2 ML VIAL ONE ×2 (09:41→10:04)
[2017-06-08] MEDS ORDERED: PAPAVERINE HCL 60 MG/2 ML SDV ONE ×2 (09:41→10:03)
[2017-06-08] MEDS ORDERED: MIDAZOLAM 2 MG/2 ML VIAL ONE ×2 (10:03→10:16)
[2017-06-08] MEDS ORDERED: PROPOFOL/EMULSION 500 MG/50 ML BOTTLE IV ONE (10:10)
[2017-06-08] MEDS ORDERED: fentaNYL 250 MCG/5 ML INJ ONE ×2 (10:12→10:38)
[2017-06-08] MEDS ORDERED: KETAMINE 200 MG/20 ML VIAL ONE (10:37)
[2017-06-08] MEDS ORDERED: NITROGLYCERIN 50 MG/10 ML SDV IV ONE (10:40)
--- NOTE | 2017-06-08 11:28 | PDANEPAE ---
ANE History of Present Illness here for CABG ANE Past Medical History - Cardiovascular History Hx Hypertension: No Hx Arrhythmias: Yes Hx Chest Pain: Yes Hx Coronary Artery / Peripheral Vascular Disease: Yes Hx CHF / Valvular Disease: No Hx Palpitations: No Cardiovascular History Comment: cp while playing basketball. anterior MN. cardiac cath 05/19/17. plavix stopped 06/02/17 - Pulmonary History Hx COPD: No Hx Asthma/Reactive Airway Disease: No Hx Recent Upper Respiratory Infection: No Hx Oxygen in Use at Home: No Hx Sleep Apnea: No Sleep Apnea Screening Result - Last Documented: Negative - Neurologic History Hx Cerebrovascular Accident: No Hx Seizures: No Hx Dementia: No - Endocrine History Hx Diabetes: No - Renal History Hx Renal Disorders: No - Liver History Hx Hepatic Disorders: No - Neurological & Psychiatric Hx Hx Neurological and Psychiatric Disorders: Yes Neurological / Psychiatric History Comment: anxiety surrounding current condition - Cancer History Hx Cancer: No - Congenital Disorder History Hx Congenital Disorders: No - GI History Hx Gastrointestinal Disorders: No - Other Health History Other Health History: none - Chronic Pain History Chronic Pain: No - Surgical History Prior Surgeries: cardiac cath 05/21/17. hernia repair as child. ears pinned back at 12 yo ANE Review of Systems Review of systems is: negative Review of Systems: - Exercise capacity Exercise capacity: >=4 METS METS (RN): 4 METS ANE Patient History - Allergies Allergies/Adverse Reactions: No Known Allergies Allergy (Verified 06/05/17 11:25) - Home Medications Home medications: home medication list seen and reviewed Home Medications: Aspirin EC [Aspirin EC 81 mg (*)] 81 mg PO DAILY 06/06/17 [Last Taken 06/07/17] Enalapril Maleate [Vasotec 2.5 MG (*)] 2.5 mg PO HS 06/06/17 [Last Taken ] - NPO status NPO Status: no food or drink >8 hours NPO Since - Liquids (Date): 06/07/17 NPO Since - Liquids (Time): 22:30 NPO Since - Solids (Date): 06/07/17 NPO Since - Solids (Time): 20:30 - Anes Hx Anes Hx: no prior problems - Smoking Hx Smoking Status: Never smoked - Family Anes Hx Family Hx Anesthesia Complications: none ANE Labs/Vital Signs - Vital Signs Vital Signs: reviewed preoperatively; see RN documention for details Blood Pressure: 108/72 Heart Rate: 57 Respiratory Rate: 20 O2 Sat (%): 99 Height: 187.96 cm Weight: 90.718 kg ANE Physical Exam - Airway Neck exam: FROM Mallampati Score: Class 1 - Cardiovascular Cardiovascular: regular rate and rhythym - ASA Status ASA Status: III ANE Anesthesia Plan Anesthesia Plan: general endotracheal anesthesia Lines/Monitors: arterial line, central line, KYLE
[2017-06-08] MEDS ORDERED: MIDAZOLAM 2 MG/2 ML VIAL IVP ONE (12:11)
[2017-06-08] MEDS ORDERED: SUGAMMADEX SODIUM 200 MG/2 ML VIAL IVP ONE (12:17)
[2017-06-08] MEDS ORDERED: HYDROmorphONE/DILAUDID 2 MG/ML INJ ONE (12:26)
[2017-06-08] MEDS ORDERED: fentaNYL 25 MCG PATCH TD ONE (12:30)
[2017-06-08] MEDS ORDERED: CEPACOL LOZENGE PO PRN (12:45)
[2017-06-08] MEDS ORDERED: POLYETHYLENE GLYCOL 3350 17 GM PKT PO PRN (12:45)
[2017-06-08] MEDS ORDERED: ONDANSETRON DISINTEGRATING 4 MG TAB PO PRN (12:45)
[2017-06-08] MEDS ORDERED: ONDANSETRON 4 MG/2 ML VIAL IVP PRN (12:45)
[2017-06-08] MEDS ORDERED: BISACODYL 10 MG SUPP PR PRN (12:45)
[2017-06-08] MEDS ORDERED: MAGNESIUM SULF 2 GM/WATER 50 ML IV ONE (12:45)
[2017-06-08] MEDS ORDERED: METOCLOPRAMIDE 10 MG/2 ML VIAL IVP PRN (12:45)
[2017-06-08] MEDS ORDERED: LACTULOSE 20 GM/30 ML UDCUP PO PRN (12:45)
[2017-06-08] MEDS ORDERED: D50W 25 GM/50 ML SYR IVP PRN (12:45)
[2017-06-08] MEDS ORDERED: ACETAMINOPHEN 650 MG SUPP PR PRN (12:45)
[2017-06-08] MEDS ORDERED: ACETAMINOPHEN 325 MG TAB PO PRN (12:45)
[2017-06-08] MEDS ORDERED: SODIUM CL NASAL 45 ML BTL EACHNARE PRN (12:45)
[2017-06-08] MEDS ORDERED: NS 1,000 ML IV SCH (12:45)
[2017-06-08] MEDS ORDERED: MEPERIDINE 25 MG/ML SYR IVP PRN (12:45)
[2017-06-08] MEDS ORDERED: ALBUMIN 5% 250 ML IV PRN (12:45)
[2017-06-08] MEDS ORDERED: PANTOPRAZOLE SODIUM 40 MG VIAL IVP ONE (12:45)
[2017-06-08] MEDS ORDERED: POTASSIUM Cl (KCl) 50 ML IV PRN (12:45)
[2017-06-08] MEDS ORDERED: MAGNESIUM HYDROXIDE 30 ML UDCUP PO PRN (12:45)
[2017-06-08] MEDS ORDERED: INSULIN REGULAR HUMAN 100 UNIT in NS 100 ML IV SCH (13:00)
[2017-06-08] MEDS ORDERED: niCARdipine/NACL/200 ML BAG IV ONE (13:02)
--- NOTE | 2017-06-08 13:24 | PDMN ---
Medical Necessity Medical necessity: IP surgery per order per [facility] guidelines; (IP per [facility] [place] [id number] single cabg
--- NOTE | 2017-06-08 14:05 | CPEKG ---
Heart Rate: 70 RR Interval: 857 P-R Interval: 204 QRSD Interval: 88 QT Interval: 436 QTC Interval: 471 P Oxford: 35 QRS Oxford: 86 T Wave Oxford: 84 EKG Severity - ABNORMAL ECG - EKG Impression: SINUS RHYTHM EKG Impression: PROBABLE ANTEROSEPTAL INFARCT, AGE INDETERM EKG Impression: LATERAL LEADS ARE ALSO INVOLVED EKG Impression: BORDERLINE PROLONGED QT INTERVAL Electronically Signed By: Matty Leon 10-Jun-2017 10:11:19
[2017-06-08] MEDS: fentaNYL 100 MCG/2 ML INJ IVP PRN ×2 (14:29→19:24)
--- NOTE | 2017-06-08 14:57 | POSTANESTH ---
Post Anesthetic Evaluation Cardiovascular Status: Normal, Stable Respiratory Status: Normal, Stable Level of Consciousness/Mental Status: Can Participate in Eval Pain Control: Adequate, Prn Tx Ordered Nausea/Vomiting Control: Adequate, Prn Tx Ordered Complications Possibly Related to Anesthesia: None Noted
--- NOTE | 2017-06-08 14:57 | GOP ---
[f rep st] OPERATIVE REPORT DATE OF OPERATION: 06/08/2017 SURGEON: Marcos Larson DO DIETITIAN HELPER: Jacques Belle PA-C. ANESTHESIOLOGIST: Dr. Leger. PREOPERATIVE DIAGNOSIS: Acute myocardial infarction with subsequent apical dysfunction and total occlusion of the left anterior descending. POSTOPERATIVE DIAGNOSIS: 1. Acute myocardial infarction with subsequent apical dysfunction and total occlusion of the left anterior descending. 2. Likely sarcoidosis. PROCEDURE PERFORMED: 1. Coronary artery bypass grafting x1 with a left internal mammary artery to the mid left anterior descending. 2. Biopsy of the suprahilar lymph node on the left with frozen section and cultures. 3. Ligation of left atrial appendage with #2 Tycron. FINDINGS: Patient presented with acute anterior wall myocardial infarction, significant anterior wall akinesis. Subsequent studies prove viability and re- established flow distally in the LAD. He was referred after conference discussion for single-vessel bypass with left internal mammary artery to the LAD. DESCRIPTION OF PROCEDURE: He was brought to the operating room, intubated, monitoring lines were placed. He was prepped and draped in sterile classical manner. Transesophageal echocardiogram revealed good LV function with mild anterior wall hypokinesis. He was heparinized, cannulated after the mammary was harvested. Cardiopulmonary bypass was begun. I did palpate a very large 3 x 2 cm lymph node in the left suprahilar region. This was carefully bluntly dissected out and sent for frozen and permanent sections. We then proceeded with arresting the heart with antegrade cardioplegia topical hypothermia, and systemic cooling. I then grafted the mammary to the mid LAD. The mammary was a 2.2 mm vessel. The LAD was a 2.4-2.6 mm vessel, it was tacked to the epicardium. The cross-clamp was removed with suction on the ascending aortic vent. He had a small thin atrial appendage. This was doubly ligated with two # 2 Tycron sutures. He was then rewarmed, weaned from bypass. Heparin was reversed with protamine. The cannula was removed and oversewn. Two ventricular pacing wires, 1 left pleural and 1 mediastinal drain were placed. The thymic fat and pericardium were closed. Chest was closed in standard fashion. Patient was returned to ICU in stable condition. /[id number]/MODL MTDD
[2017-06-08] MEDS ORDERED: ceFAZolin 2 GM/DEXTROSE 100 ML IV SCH (18:00)
[2017-06-08] MEDS: SENNOSIDES/DOCUSATE SODIUM TAB PO SCH (19:23)
[2017-06-08] MEDS: HYDROCODONE/APAP 5/325 TAB PO PRN ×2 (19:24→21:38)
[2017-06-08] MEDS: ceFAZolin 2 GM/SWFI 2 GM/20 ML SYR IVP SCH (20:10)
[2017-06-08] MEDS: MUPIROCIN 2% 22 GM OINT NS SCH (23:41)
[2017-06-09] MEDS: HYDROCODONE/APAP 5/325 TAB PO PRN ×5 (02:21→23:06)
[2017-06-09] MEDS: ceFAZolin 2 GM/SWFI 2 GM/20 ML SYR IVP SCH ×3 (03:37→18:47)
[2017-06-09 05:03] LABS: PLATELET COUNT 192 10^3/uL (150-400)
[2017-06-09] MEDS: HEPARIN 5,000 UNIT/0.5 ML SYR SC SCH ×3 (05:48→20:38)
--- NOTE | 2017-06-09 06:37 | SOAPPROG ---
SOAP Progress Note Assessment/Plan: POD #1: CABGx1 (DRISCOLL-LAD), ligation ANNY, suprahilar lymph node bx AMI/total occlusion of LAD s/p CABG - BB/ASA/statin for secondary prevention - PT/OT - SCDs/heparin SQ for DVT prophylaxis - Transfer to PCU ISM with systolic dysfunction (EF 35%) - Introduction of HF meds as tolerated Acute blood loss anemia - Stable without the need for transfusions Enlarged suprahilar lymph node - Prelim results negative for lymphoma - Await final results for further treatment (path/cultures pending) Subjective: Pain well-controlled. Denies SOB. Objective: Vital Signs Temp Pulse Resp BP Pulse Ox 36.9 C 85 23 H 133/94 H 97 06/09/17 04:00 06/09/17 06:00 06/09/17 06:00 06/09/17 06:00 06/09/17 06:00 Microbiology 06/08/17 11:31 Mycobacterial Smear (DENNIS) - Final Other - Lymph Node 06/08/17 11:31 Gram Stain - Final Other - Lymph Node Laboratory Results 06/09/17 04:50 06/09/17 04:50 06/08/17 06/09/17 06/10/17 05:59 05:59 05:59 Intake Total 1205.6 Output Total 4375 Balance -3169.4 Physical Exam - Physical Exam General Appearance: WD/WN, alert, no apparent distress EENT: No scleral icterus (R), No scleral icterus (L) Neck: normal inspection Respiratory: No respiratory distress Cardiac/Chest: regular rate, rhythm Abdomen: non-tender, soft, No distended Skin: normal color, warm/dry Extremities: No pedal edema Neuro/Psych: no motor/sensory deficits, alert, normal mood/affect, oriented x 3 ICD10 Worksheet Patient Problems: Problems Problem Status Onset S/P CABG x 1 Acute Acute coronary syndrome Acute Chest pain Acute Myocardial infarction involving left anterior descending (LAD) coronary artery Acute
[2017-06-09] MEDS ORDERED: CARVEDILOL 3.125 MG TAB PO SCH (08:00)
[2017-06-09] MEDS: SENNOSIDES/DOCUSATE SODIUM TAB PO SCH ×2 (08:27→20:38)
[2017-06-09] MEDS: PANTOPRAZOLE SODIUM 40 MG TAB PO SCH (08:28)
[2017-06-09] MEDS: MUPIROCIN 2% 22 GM OINT NS SCH ×2 (08:28→20:39)
[2017-06-09] MEDS: ASPIRIN EC 81 MG TAB PO SCH (08:28)
--- NOTE | 2017-06-09 16:43 | ASMTCMCOM ---
CM Note CM Note Notes: 31yr old male admitted after CP and SC in April. This is POD #1 of CABG x 1. Mother will be staying with patient after discharge. Therapies don't anticipate that patient will have discharge needs. Date Signed: 06/09/2017 04:42 PM Electronically Signed By:Maribel Gonzalez LCSW
[2017-06-09] MEDS ORDERED: LORazepam 2 MG/ML INJ IVP ONE (16:45)
[2017-06-09] MEDS: CARVEDILOL 6.25 MG TAB PO SCH (18:47)
[2017-06-09] MEDS: traMADol 50 MG TAB PO PRN (19:35)
[2017-06-10] MEDS: ceFAZolin 2 GM/SWFI 2 GM/20 ML SYR IVP SCH (04:00)
[2017-06-10] MEDS: traMADol 50 MG TAB PO PRN ×2 (05:38→09:17)
[2017-06-10] MEDS: HEPARIN 5,000 UNIT/0.5 ML SYR SC SCH ×3 (05:39→21:01)
[2017-06-10 06:03] LABS: PLATELET COUNT 160 10^3/uL (150-400)
--- NOTE | 2017-06-10 07:15 | SOAPPROG ---
SOAP Progress Note Assessment/Plan: Assessment: POD#2 CABGx1 (DRISCOLL-LAD), prophylactic suture ligation ANNY, suprahilar lymph node bx AMI/total occlusion of LAD s/p CABG - BB/ASA/statin for secondary prevention. No further need for Plavix. - PT/OT - SCDs/heparin SQ for DVT prophylaxis ISM with systolic dysfunction (EF 35%) - Introduction of HF meds as tolerated Acute blood loss anemia - Stable without the need for transfusions Enlarged suprahilar lymph node - Prelim results negative for lymphoma - Await final results for further treatment (path/cultures pending) Plan: Remove chest tubes and TCPWs. Cont coreg 6.125 mg BID. Consider restart Vasotec tonight if SBP remains > 120. Inc activity as tolerated. Wean O2. Dispo - Home without services next 1-2 days. 06/10/17 07:14 Subjective: Doing ok. Improving mobility and appetite. Adequate pain control. Objective: Vital Signs Temp Pulse Resp BP Pulse Ox 36.8 C 80 16 128/65 H 94 06/10/17 06:04 06/10/17 06:04 06/10/17 06:04 06/10/17 06:04 06/10/17 06:04 Microbiology 06/08/17 11:31 Gram Stain - Final Other - Lymph Node 06/08/17 11:31 Mycobacterial Smear (DENNIS) - Final Other - Lymph Node Laboratory Results 06/10/17 05:30 06/10/17 05:30 06/09/17 06/10/17 06/11/17 05:59 05:59 05:59 Intake Total 1205.6 1730 Output Total 4375 1505 Balance -3169.4 225 Holding SR. SBPs 120s. Stable 3 Lpm O2 req. CXR -> hypoventilation, left basilar atelectasis. CTOP approaching removal criteria. Excellent autodiuresis. Below admit wt. Labs ok. Physical Exam - Physical Exam General Appearance: alert, no apparent distress Respiratory: lungs clear (grossly), other (blakes x 2 to bulb suction, serosang drainage) Cardiac/Chest: regular rate, rhythm, other (Sternotomy CDI. Vwires intact.) Abdomen: non-tender, soft Skin: warm/dry Extremities: other (no visible edema) ICD10 Worksheet Patient Problems: Problems Problem Status Onset S/P CABG x 1 Acute Acute coronary syndrome Acute Chest pain Acute Myocardial infarction involving left anterior descending (LAD) coronary artery Acute
[2017-06-10] MEDS: PANTOPRAZOLE SODIUM 40 MG TAB PO SCH (09:03)
[2017-06-10] MEDS: ASPIRIN EC 81 MG TAB PO SCH (09:03)
[2017-06-10] MEDS: CARVEDILOL 6.25 MG TAB PO SCH ×2 (09:03→17:36)
[2017-06-10] MEDS: SENNOSIDES/DOCUSATE SODIUM TAB PO SCH ×2 (09:03→21:46)
[2017-06-10] MEDS ORDERED: oxyCODONE IR 5 MG TAB PO PRN (09:11)
[2017-06-10] MEDS: MUPIROCIN 2% 22 GM OINT NS SCH (16:13)
[2017-06-11] MEDS: traMADol 50 MG TAB PO PRN ×3 (03:54→23:19)
[2017-06-11] MEDS: HEPARIN 5,000 UNIT/0.5 ML SYR SC SCH (03:55)
--- NOTE | 2017-06-11 07:46 | SOAPPROG ---
SOAP Progress Note Assessment/Plan: Assessment: POD#3 CABGx1 (DRISCOLL-LAD), prophylactic suture ligation ANNY, suprahilar lymph node bx AMI/total occlusion of LAD s/p CABG - BB/ASA/statin for secondary prevention. No further need for Plavix. - Chest tubes and TCPWs out - PT/OT - SCDs/heparin SQ for DVT prophylaxis ISM with systolic dysfunction (EF 35%) - Introduction of HF meds as tolerated. Insufficient BP for ACEI. 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 Sarcoidosis suspected. Plan: Cont coreg 6.125 mg BID. Cont inc activity as tolerated. Dispo - Home without services tomorrow. 06/11/17 07:43 Subjective: Improving strength and stamina. IS up to 1000. Actively walking independently. Comfortable going home tomorrow. Objective: Vital Signs Temp Pulse Resp BP Pulse Ox 36.8 C 78 16 115/66 93 06/11/17 03:57 06/11/17 03:57 06/11/17 03:57 06/11/17 03:57 06/11/17 04:30 Microbiology 06/08/17 11:31 Gram Stain - Final Other - Lymph Node Laboratory Results 06/10/17 05:30 06/11/17 03:55 06/10/17 06/11/17 06/12/17 05:59 05:59 05:59 Intake Total 1730 1650 Output Total 1505 1500 Balance 225 150 Cardioresp status stable. Almost off suppl O2. Balanced I/Os. Remains below admit wt. Physical Exam - Physical Exam General Appearance: alert, no apparent distress Respiratory: lungs clear (grossly) Cardiac/Chest: regular rate, rhythm, other (Sternotomy CDI) Abdomen: non-tender, soft Skin: warm/dry Extremities: other (no visible edema) ICD10 Worksheet Patient Problems: Problems Problem Status Onset S/P CABG x 1 Acute Acute coronary syndrome Acute Chest pain Acute Myocardial infarction involving left anterior descending (LAD) coronary artery Acute
[2017-06-11] MEDS: PANTOPRAZOLE SODIUM 40 MG TAB PO SCH (10:12)
[2017-06-11] MEDS: CARVEDILOL 6.25 MG TAB PO SCH ×2 (10:12→18:26)
[2017-06-11] MEDS: ASPIRIN EC 81 MG TAB PO SCH (10:12)
[2017-06-11] MEDS: SENNOSIDES/DOCUSATE SODIUM TAB PO SCH (10:38)
[2017-06-11] MEDS ORDERED: SENNOSIDES/DOCUSATE SODIUM TAB PO PRN (21:00)
[2017-06-12] MEDS: traMADol 50 MG TAB PO PRN ×2 (05:03→12:49)
[2017-06-12 07:29] VITALS: BP 101/64; TEMP 98.3
--- NOTE | 2017-06-12 07:59 | SOAPPROG ---
SOAP Progress Note Assessment/Plan: Assessment: POD#4 CABGx1 (DRISCOLL-LAD), prophylactic suture ligation ANNY, suprahilar lymph node bx AMI/total occlusion of LAD s/p CABG - BB/ASA/statin for secondary prevention. No further need for Plavix. - Chest tubes and TCPWs out - PT/OT - SCDs/heparin SQ for DVT prophylaxis ISM with systolic dysfunction (EF 35%) - Introduction of HF meds as tolerated. Insufficient BP for ACEI. 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 Sarcoidosis suspected. Plan: Ok for discharge. Instructions re diet, meds, activity, f/u and wound care to be reviewed in presence of family. 06/12/17 07:58 Subjective: Better every day. Actively walking without difficulty. Satisfactory analgesia on Tramadol. +BM. Ready for home. Objective: Vital Signs Temp Pulse Resp BP Pulse Ox 36.8 C 82 19 101/64 92 06/12/17 07:28 06/12/17 07:28 06/12/17 07:28 06/12/17 07:28 06/12/17 07:28 Microbiology 06/08/17 11:31 Gram Stain - Final Other - Lymph Node Laboratory Results 06/10/17 05:30 06/11/17 03:55 06/11/17 06/12/17 06/13/17 05:59 05:59 05:59 Intake Total 1650 1970 Output Total 1500 1950 Balance 150 20 Cardioresp status stable. Almost off O2. Remains below preop wt. Physical Exam - Physical Exam General Appearance: alert, no apparent distress Respiratory: lungs clear Cardiac/Chest: regular rate, rhythm, other (Sternotomy and CT sites CDI) Abdomen: non-tender, soft Skin: warm/dry Extremities: other (no visible edema) ICD10 Worksheet Patient Problems: Problems Problem Status Onset Acute coronary syndrome Acute Chest pain Acute Myocardial infarction involving left anterior descending (LAD) coronary artery Acute S/P CABG x 1 Acute
[2017-06-12] MEDS: CARVEDILOL 6.25 MG TAB PO SCH (08:52)
[2017-06-12] MEDS: ASPIRIN EC 81 MG TAB PO SCH (08:52)
[2017-06-12] MEDS ORDERED: ATORVASTATIN CALCIUM 40 MG TAB PO SCH (09:00)
--- NOTE | 2017-06-12 09:49 | PDDCSUM ---
Discharge Summary Discharge Summary: DATE OF ADMISSION: 06/08/17 DATE OF DISCHARGE: 06/12/17 DISPOSITION: Home, self-care PRINCIPAL ADMISSION DIAGNOSIS: Ischemic single vessel coronary artery disease PRINCIPAL DISCHARGE DIAGNOSES: 1. Status post coronary artery bypass grafting x 1 2. Suprahilar adenopathy with biopsy showing noncaseating granulomatous infiltration without organisms. Sarcoidosis suspected. 3. Status post prophylactic suture ligation of the left atrial appendage 4. Acute expected blood loss anemia HISTORY OF PRESENT ILLNESS: 31 yo male admitted for elective surgical revascularization of the left anterior descending artery 3 wks after medical optimization of an ischemic cardiomyopathy associated with a completed anterior AK. 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 LVEF 30-35%. Anteroseptal and apical viability by nuclear stress imaging. Mild to moderate mediastinal lymphadenopathy by CTA. MEDICATIONS ON ADMISSION: ASA 81 mg daily, Plavix 75 mg daily, Coreg 6.25 mg BID, Atorvastatin 40 mg daily , Enalapril 2.5 mg HS, Nitrostat 0.4 mg SL q5 min prn ALLERGIES/SENSITIVITIES: NKDA CONSULTANTS: none PROCEDURES/IMAGIN06/08/17 ([place]): Coronary artery bypass grafting x 1 (DRISCOLL-mid LAD). Takedown left internal mammary artery. Prophylactic endoloop ligation of the left atrial appendage. Biopsy of an enlarged suprahilar lymph node. ABBREVIATED HOSPITAL COURSE BY ACTIVE PROBLEM LIST: 1. Sx LAD occlusion - s/p arterial revascularization. Stable early postop course. Secondary prevention with baby ASA, BB and statin. No further need for Plavix. 2. ISCM with systolic dysfunction (EF 35%) - Stable. No postop decompensation. Adequate autodiuresis. Insufficient BP for ACEI. 3. Enlarged suprahilar lymph node - Incidental discovery during DRISCOLL harvest. Prelim cxs neg for infection. 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 CRISTINA level pending. Sarcoidosis suspected. Follow up with applications system analyst once recovered from surgery. 4. Acute expected blood loss anemia - Stable. No transfusions required. DISCHARGE CLINICAL INFORMATION: Sternum grossly stable. Sternotomy CDI, sutured, +Dermabond. HR 60s. SBP 100s-110s. SpO2 87% RA, correcting to 92% on 1 lpm O2. Wt 2.5 kg below admission at 88.2 kilos. Hgb 13.1, HCT 37.3, Plt 160, Na 141, K 4.1, Cr 0.9 DISCHARGE MEDICATIONS: As on admission with the following adjustments: Hold Vasotec. NEW prescriptions: 1. Tramadol 50 mg one half to two tabs q 6-8 hrs prn incisional discomfort. 2. Oxygen at 1 lpm continuously or as directed by SpO2. FOLLOW UP APPOINTMENTS: 1. CV surgery: with Dr Larson at [facility] on 06/23 at 10:30 am. 2. Cardiology: with Dr Nova at [facility] within 6 weeks. Appointment to be established during surgical visit. 3. Pulmonology: with Dr Lara at [facility] in 2-3 months if desired. FOLLOW UP TESTING: CXR prior to surgical appointment.
--- NOTE | 2017-06-12 12:22 | PDHOMEO2F ---
Home Oxygen Face to Face Home Orders: I certify that a physician or a nurse practitioner or physician's assistant restaurant general manager has had a [id number] encounter with this patient on the date of this order due to the diagnosis listed, which relates to the primary reason the patient requires home oxygen. Alternative treatments have been tried, or considered, and deemed ineffective. It is anticipated that supplemental oxygen will result in improvement with treatment. Home oxygen qualifying diagnosis: cad Home oxygen secondary diagnosis: ischemic cardiomyopathy SpO2 on room air (%): 88 Frequency of home oxygen needed: continuous Home oxygen liters per minute: 1 Home oxygen delivery device: nasal cannula Concentrator: Yes E-tanks for mobility and back up: Yes If ordering portable O2, is the patient mobile in the home?: Yes I certify that, based on these findings, the home oxygen is medically necessary for this patient for the following length of time. Length of time home oxygen needed: 1 month
[2017-06-12 13:15] VITALS: PULSE 98; RESP 18; O2SAT 87
--- NOTE | 2017-06-12 13:56 | ASDISCHSUM ---
Discharge Information Plan Status:Home with No Needs Medically Cleared to Leave:06/12/2017 Discharge Date:06/12/2017 01:40 PM CM D/C Disposition:Home, Routine, Self-Care ADT D/C Disposition:Home, Routine, Self-Care Projected Discharge Date:06/12/2017 01:40 PM Transportation at D/C:Family Discharge Delay Reason: Follow-Up Date:06/12/2017 01:40 PM Discharge Slot: Final Diagnosis:CAD, ACS Placement Information Patient Contact Information Contact Name:MANJULA Relationship:Other Address:[facility] [address] City:[place] Alternate Phone: State/Zip Code:[place] [address] Email: Financial Information Financial Class:Medicaid Primary Plan Desc:MEDICAID HE[employer] FIRST [employer]HI[employer]IT [employer] Primary Plan Number:[id number] Secondary Plan Desc: Secondary Plan Number: Assessment Information LACE LACE Length of stay for Answers: 4-6 days current admission Acuity / Level of Answers: Yes Care: Did the patient have an inpatient admission? Comorbidities - select Answers: Coronary Artery Disease all that apply # of Emergency department Answers: 0 visits in the last 6 months Score: 9 Date Signed: 06/12/2017 01:54 PM Electronically Signed By:Aniyah Redd RN [facility] CM Progress Note CM Note CM Note Notes: 31yr old male admitted after CP and MO in April. This is POD #1 of CABG x 1. Mother will be staying with patient after discharge. Therapies don't anticipate that patient will have discharge needs. Date Signed: 06/09/2017 04:42 PM Electronically Signed By:Maribel Gonzalez LCSW Case Management Discharge Plan Note Case Management Discharge Discharge Order Complete? Answers: Yes Patient to Obtain Answers: Independently Medications Discharge Comments Notes: 06/12/2017 Case Management Note Pt discharged independent with follow up as directed. Likely outpatient cardiac rehab. There were no further case management d/c needs. Date Signed: 06/12/2017 01:55 PM Electronically Signed By:Aniyah Redd RN Intervention Information
== END 2017-06-12 13:40 | disposition home or self-care (01) | DRG 236 ==
LOC: F2W 08:12 → F2N 13:05 → F2W 06-09 12:45
PROVIDERS: ADMIT Thoracic Surgery (Cardiothoracic Vascular Surgery); ATTEND Thoracic Surgery (Cardiothoracic Vascular Surgery)
PROC: 07B70ZX Excision of Thorax Lymphatic, Open Approach, Diagnostic (ICD-10-PCS; principal; 2017-06-08 10:00)
PROC: 5A1221Z Performance of Cardiac Output, Continuous (ICD-10-PCS; principal; 2017-06-08 10:00)
PROC: 02100Z9 Bypass Coronary Artery, One Artery from Left Internal Mammary, Open Approach (ICD-10-PCS; principal; 2017-06-08 10:00)
PROC: 02L70ZK Occlusion of Left Atrial Appendage, Open Approach (ICD-10-PCS; principal; 2017-06-08 10:00)
DX: I25.10 Atherosclerotic heart disease of native coronary artery without angina pectoris (principal); I25.82 Chronic total occlusion of coronary artery; D86.89 Sarcoidosis of other sites; D62 Acute posthemorrhagic anemia; I25.2 Old myocardial infarction
CPT/HCPCS: 82164-90; 82947-QW; 97116-GP; 97161-GP; 97165-GO; 97530-GP; 97535-GO; J0153; J0171; J0282; J0690; J1170; J1265; J1644; J1815; J2001; J2060; J2150; J2250; J2260; J2270; J2370; J2405; J2440; J2704; J2720; J2765; J2930; J3010; J3475; J7060; P9041

== ENCOUNTER → 2017-06-23 | Outpatient (CLI) | payer MEDICAID | LOC: FIMAGING 11:16 | PROVIDERS: ATTEND Thoracic Surgery (Cardiothoracic Vascular Surgery) | DX: Z48.812 Encounter for surgical aftercare following surgery on the circulatory system (principal); Z95.1 Presence of aortocoronary bypass graft; I51.7 Cardiomegaly; J90 Pleural effusion, not elsewhere classified ==

== ENCOUNTER → 2017-06-30 | Outpatient (CLI) | payer MEDICAID | LOC: FIMAGING 10:03 | PROVIDERS: ATTEND Thoracic Surgery (Cardiothoracic Vascular Surgery) | DX: J98.11 Atelectasis (principal); J90 Pleural effusion, not elsewhere classified; Z95.1 Presence of aortocoronary bypass graft ==

== ENCOUNTER → 2017-07-03 | Outpatient (CLI) | payer MEDICAID ==
[~2017-07-03] MED LIST changes: -ADENOSINE 6 MG/2 ML VIAL ONE; -ALBUMIN 5% 250 ML BOTTLE IV ONE; -AMINOCAPROIC ACID 5 GM/20 ML VIAL IV ONE; -AMIODARONE HCL 150 MG/3 ML VIAL ONE; -CALCIUM CHLORIDE 1 GM/10 ML INJ ONE; -CITRATE DEXTROSE SOLN 500 ML BAG ONE; -DOPamine/DEXTROSE/250 ML BAG IV ONE; -EPINEPHrine 8 MG in NS 250 ML IV ONE; -HEPARIN 10,000 UNIT/10 ML MDV (1,000 UNIT/ML) ONE; -INSULIN REGULAR HUMAN 100 UNIT in NS 100 ML IV ONE; +LIDOCAINE 1% 300 MG/30 ML SDV ONE; -LIDOCAINE 2% 100 MG/5 ML SYR ONE; -MAGNESIUM SULFATE 1 GM/2 ML VIAL ONE; -MANNITOL 25% 12.5 GM/50 ML VIAL IVP ONE; -MILRINONE/DEXTROSE/100 ML BAG IV ONE; -NA BICARBONATE 50 MEQ/50 ML VIAL ONE; -NOREPINEPHRINE BITARTRATE 16 MG in NS 250 ML IV ONE; -PHENYLEPHRINE HCL 50 MG in NS 250 ML IV ONE; -PROTAMINE SULFATE 50 MG/5 ML VIAL IVP ONE; -SODIUM BICARBONATE 20 MEQ, LIDOCAINE 1% 10 ML in NORMOSOL-R 1,000 ML MISC ONE; -VERAPAMIL 5 MG, NITROGLYCERIN 2.5 MG, HEPARIN 500 UNIT, SODIUM BICARBONATE 0.2 MEQ in L... MISC ONE; -ceFAZolin 1 GM VIAL ONE; -methylPREDNISolone SOD SUCC 1 GM/8 ML VIAL ONE; -niCARdipine/NACL/200 ML BAG IV ONE
== END ==
LOC: FIMAGING 10:10
PROVIDERS: ATTEND Thoracic Surgery (Cardiothoracic Vascular Surgery)
PROC: 0W9B3ZZ Drainage of Left Pleural Cavity, Percutaneous Approach (ICD-10-PCS; principal; 2017-07-03)
DX: J90 Pleural effusion, not elsewhere classified (principal); J98.11 Atelectasis